=== PATIENT | female | born 1995 ===

== ENCOUNTER 2020-10-04 17:58 | Emergency (ER) | payer MEDICAID ==
[~2020-10-04] VITALS: Ht 160 cm; Wt 71.7 kg
[2020-10-04] MEDS ORDERED: LIDOCAINE 1% HCL (LOCAL ANESTH.) INJ 20ML MDV IJ ONE (20:30)
[2020-10-04] MEDS ORDERED: BACITRACIN TOP OINT 1 UD PKG TOP ONE (21:45)
[2020-10-04 21:53] VITALS: BP 123/69
== END 2020-10-04 21:54 | disposition home or self-care (01) ==
LOC: ER 18:04
DX: S91.204A Unspecified open wound of right lesser toe(s) with damage to nail, initial encounter (principal); S90.221A Contusion of right lesser toe(s) with damage to nail, initial encounter; W18.09XA Striking against other object with subsequent fall, initial encounter; Y93.89 Activity, other specified; Y92.89 Other specified places as the place of occurrence of the external cause; Y99.8 Other external cause status
CPT/HCPCS: 11740; 73630; 99284; J2001; J7030